=== PATIENT | female | born 1935 | race Caucasian/White ===

== ENCOUNTER 2019-07-14 22:16 | Emergency (ER) | payer MEDICARE, BC ==
--- NOTE | 2019-07-14 22:41 | EDM.PDOC ---
ED HPI GENERAL MEDICAL PROBLEM - General Chief Complaint: Neuro Symptoms/Deficits Stated Complaint: LOSS OF CONCIOUSNESS Time Seen by Provider: 07/14/19 22:40 Source of Information: Reports: Patient, Family History Limitations: Reports: No Limitations - History of Present Illness INITIAL COMMENTS - FREE TEXT/NARRATIVE: This is a 83yo F brought in by EMS for a syncopal episode. Patient has had many bouts of dizziness stemming from 10 years ago. She has been worked up at [facility] with prior heart cath. It is suspected that her symptoms are vasovagal. She has had a prior diagnosis of dehydration for the episodes. She has had a holter for 30 days without findings. She notes she had 3 episodes the last month but this recent episode was the second time she passed out. Her daughter notes she was passed out for 3-4 minutes and was very groggy when he came around. By the time she arrived in the ER she was near baseline. Patient denies any current issues or grogginess. Onset: Sudden Duration: Minutes: (3-4), Recurring Location: Reports: Generalized Severity: Severe Improves with: Reports: None Worsens with: Reports: None Associated Symptoms: Reports: Diaphoresis, Nausea/Vomiting, Syncope, Weakness - Related Data Allergies Allergy/AdvReac Type Severity Reaction Status Date / Time alendronate sodium Allergy Other Verified 07/14/19 23:27 [From Fosamax] Dairy Products Allergy Other Verified 07/14/19 23:27 diphenhydramine Allergy Other Verified 07/14/19 23:27 [From Benadryl] ibuprofen Allergy Other Verified 07/14/19 23:27 Ypbsmsi-Cdn-Mod Reductase Allergy Other Verified 07/14/19 23:27 Inhibitor Home Meds: Home Meds Albuterol [Ventolin HFA] 2 inhaler NEB ASDIRECTED PRN 07/14/19 [History] Betamethasone Dipropionate 15 gm TP 07/14/19 [History] Lisinopril [Zestril] 40 mg PO DAILY 07/14/19 [History] amLODIPine Besylate [Norvasc] 5 mg PO DAILY 07/14/19 [History] ED ROS GENERAL - Review of Systems Review Of Systems: Comprehensive ROS is negative, except as noted in HPI. - Physical Exam Exam: See Below Exam Limited By: No Limitations General Appearance: Alert, WD/WN, No Apparent Distress Eye Exam: Bilateral Eye: EOMI, PERRL Ears: Normal External Exam Nose: Normal Inspection Throat/Mouth: Normal Inspection Head Exam: Atraumatic, Normocephalic Neck: Normal Inspection Respiratory/Chest: No Respiratory Distress, Lungs Clear, Normal Breath Sounds, No Accessory Muscle Use, Chest Non-Tender Cardiovascular: Normal Peripheral Pulses, Regular Rate, Rhythm GI/Abdominal: Normal Bowel Sounds, Soft, Non-Tender Neuro Exam (Abbreviated): Alert, Oriented, CN II-XII Intact, Normal Cognition, Normal Gait, Normal Reflexes, No Motor/Sensory Deficits Back Exam: Normal Inspection Extremities: Normal Inspection Psychiatric: Normal Affect, Normal Mood Skin Exam: Warm, Dry, Intact Course - Vital Signs Last Recorded V/S: Last Vital Signs Temp 36.1 C 07/14/19 22:21 Pulse 77 07/14/19 23:13 Resp 17 07/14/19 23:01 BP 150/91 H 07/14/19 23:13 Pulse Ox 98 07/14/19 23:01 - Orders/Labs/Meds Labs: Laboratory Tests 07/14/19 07/14/19 07/14/19 Range/Units 22:45 22:45 22:45 WBC 13.9 H (4.0-11.0) K/uL RBC 4.75 (3.80-5.80) M/uL Hgb 13.7 (11.5-16.5) g/dL Hct 41.3 (37.0-47.0) % MCV 87 (76-96) fL MCH 28.8 (27.0-32.0) pg MCHC 33.2 (31.0-35.0) g/dL RDW 13.3 (11.0-16.0) % Plt Count 250 (150-500) K/uL MPV 10.3 H (6.0-10.0) fL Neut % (Auto) 66.7 (45.0-70.0) % Lymph % (Auto) 21.4 (20.0-40.0) % Brooke % (Auto) 8.5 (3.0-10.0) % Eos % (Auto) 3.0 (1.0-5.0) % Baso % (Auto) 0.4 (0.0-0.5) % Neut # (Auto) 9.22 H (2.00-7.50) K/uL Lymph # (Auto) 2.97 (1.50-4.00) K/uL Brooke # (Auto) 1.18 H (0.20-0.80) K/uL Eos # (Auto) 0.42 H (0.04-0.40) K/uL Baso # (Auto) 0.06 (0.02-0.10) K/uL Sodium 141 (136-145) mmol/L Potassium 3.3 L (3.5-5.1) mmol/L Chloride 102 (98-107) mmol/L Carbon Dioxide 27.5 (21.0-32.0) mmol/L Anion Gap 14.8 (5.0-15.0) mmol/L BUN 24 (8-26) mg/dL Creatinine 1.13 H (0.55-1.02) mg/dL Est Cr Clr Drug Dosing 31.20 mL/min Estimated GFR (MDRD) 46 L (>60) MLS/MIN BUN/Creatinine Ratio 21.2 (6-25) Glucose 144 H (74-100) mg/dL Calcium 8.7 (8.5-10.1) mg/dL Total Bilirubin 0.7 (0.0-1.0) mg/dL AST 18 (15-37) U/L ALT 25 (12-78) U/L Alkaline Phosphatase 114 (46-116) U/L Troponin I < 0.017 (0.000-0.060) ng/mL B-Natriuretic Peptide 336 (0-450) pg/mL Total Protein 7.3 (6.4-8.2) g/dL Albumin 3.5 (3.4-5.0) g/dL Globulin 3.8 (2.2-4.2) g/dL Albumin/Globulin Ratio 0.9 (0.8-2.0) TSH, Ultra Sensitive 4.914 H (0.358-3.740) uIU/mL Prolactin 63.6 H (4.8-23.3) ng/mL Departure - Departure Time of Disposition: 00:00 Disposition: Home, Self-Care 01 Condition: Good Clinical Impression: Vasovagal syncope - Discharge Information Instructions: Syncope, [id number] Referrals: PCP,None [Primary Care Provider] - Forms: ED Department Discharge Sepsis Event Note - Focused Exam Date Exam was Performed: 07/18/19 Time Exam was Performed: 08:19 - Problem List Review Problem List Initiated/Reviewed/Updated: Yes - Assessment/Plan Plan: Counseled on continued hydration, taking time to get up and decreased leaning or bending motions. Discussed f/u with PCP for Carotid U/S and further care. F/ u as directed and rtc or ER as needed if symptoms return.
--- NOTE | 2019-07-15 11:47 | CT ---
Date of Service: 07/14/19 Clinical Data: stroke like symptoms UNENHANCED BRAIN CT: Multislice acquisition through the brain without IV contrast was performed. No priors. There is mild diffuse cerebral atrophy. There are periventricular lucencies bilaterally consistent with small vessel ischemic change. There is a small basal ganglia calcification on the right. No masses or mass effect. No intracranial hemorrhage. No evidence of acute or subacute infarct. [id number] [facility]
== END 2019-07-14 23:57 | disposition home or self-care (01) ==
LOC: LB.ED 22:16
DX: R55 Syncope and collapse (principal); R53.1 Weakness; E86.0 Dehydration
CPT/HCPCS: 36415; 70450; 80053; 83880; 84146; 84443; 84484; 85025; 93005; 99284-25; A0425; A0429